=== PATIENT | male | born 1965 | race Caucasian/White ===

== ENCOUNTER → 2025-04-27 13:05 | Outpatient (REF) | payer OTHER, SELFPAY | LOC: HWRAD 13:05 | PROVIDERS: ATTENDING PHYSICIAN Otolaryngology Otolaryngology/Facial Plastic Surgery; FAMILY PHYSICIAN Family Medicine | DX: D44.0 Neoplasm of uncertain behavior of thyroid gland (principal) | CPT/HCPCS: 76536 ==